=== PATIENT | female | born 1950 | race Caucasian/White ===

== ENCOUNTER 2020-07-09 14:22 | Outpatient (CLI) | payer MEDICARE ==
--- NOTE | 2020-07-09 16:08 | DEXA Report ---
PROCEDURE: Dexa Spine and/or Hip INDICATIONS: POST MENOPAUSAL TECHNIQUE: Dual energy x-ray absorptiometry (DXA) was performed on a [employer] System. Regions measur ed are the AP Spine, femoral neck, and if needed forearm. COMPARISON: None. FINDINGS: Lumbar Spine: Bone Mineral Density 1.077 g/cm/cm,T score -0.9, normal Left Hip: Bone Mineral Density 0.712 g/cm/cm,T score -2.3, osteopenia Left Femoral Neck: Bone Mineral Density 0.689 g/cm/cm, T score -2.5, osteoporosis (T score greater or equal to -1.0: NORMAL) (T score from -1.1 to -2.4: OSTEOPENIA) (T score less than or equal to -2.5 to: OSTEOPOROSIS) Impression: Osteoporosis. Patients with diagnosis of osteoporosis or osteopenia should have regular bone mineral density assess ment. For those eligible for Medicare, routine testing is allowed once every 2 years. Testing frequ ency can be increased for patients who have rapidly progressing disease or for those who are receivin g medical therapy to restore bone mass. Reviewed by: Hanny Castellon MD, PhD on 07/09/2020 4:07 PM PST Approved by: Hanny Castellon MD, PhD on 07/09/2020 4:07 PM PST Station ID: [id number]
== END 2020-07-09 14:23 | disposition home or self-care (01) ==
LOC: DI 14:22
PROVIDERS: ATTEND Nurse Practitioner
DX: M81.0 Age-related osteoporosis without current pathological fracture (principal); Z78.0 Asymptomatic menopausal state

== ENCOUNTER 2020-08-25 10:09 | Outpatient (CLI) | payer MEDICARE, OTHER ==
--- NOTE | 2020-08-26 12:25 | Mammography Report ---
BILATERAL DIGITAL SCREENING MAMMOGRAM 3D/2D WITH AUGMENTATION: 08/25/2020 CLINICAL: Routine screening. Comparison is made to exams dated: 09/11/2014 mammogram and 10/05/2011 mammogram - [facility]. The tissue of both breasts is heterogeneously dense. This may lower the sensitivity of ma mmography. Bilateral breast implants are stable. No significant masses, calcifications, or other findings are seen in either breast. There has been no significant interval change. IMPRESSION: NEGATIVE There is no mammographic evidence of malignancy. A 1 year screening mammogram is recommended. This exam was interpreted at Station ID: [id number]. NOTE: For mammograms, a report in lay terms will be sent to the patient. Approximately 15% of breast malignancies will not be visualized mammographically. In the management of a palpable breast mass, a negative mammogram must not discourage biopsy of a clinically suspicious lesion. Electronically Signed By: Yung Jiménez M.D. ar/penrad:08/25/2020 12:04:33 ACR BI-RADS Category 1: Negative 3341F PARENCHYMAL PATTERN: (D) - The breast(s) demonstrate(s) heterogeneously dense fibroglandular parenchy ma. BI-RADS CATEGORY: (1) - 1 RECOMMENDATION: (ANNUAL) - Recommend routine annual screening mammography. [id number] 1 year screening LATERALITY: (B)
== END 2020-08-25 10:10 | disposition home or self-care (01) ==
LOC: DI.N 10:09
PROVIDERS: ATTEND Nurse Practitioner
DX: Z12.31 Encounter for screening mammogram for malignant neoplasm of breast (principal)

== ENCOUNTER 2021-02-10 08:00 | Outpatient (CLI) | payer MEDICARE, OTHER | END 2021-02-10 23:59 | disposition home or self-care (01) | LOC: LAB.N 08:00 | PROVIDERS: ATTEND Physician Assistant Medical | DX: R05 Cough (principal); Z20.822 Contact with and (suspected) exposure to COVID-19 ==

== ENCOUNTER 2021-08-05 13:35 | Outpatient (CLI) | payer MEDICARE ==
[2021-08-05 19:06] LABS: % IRON SATURATION 47 % (20-50); IRON 176 ug/dL (28-170); TOTAL IRON BINDING CAPACITY 372 ug/dL (250-450); TRANSFERRIN 266 mg/dL (192-382)
== END 2021-08-05 13:36 | disposition home or self-care (01) ==
LOC: LAB.N 13:35
PROVIDERS: ATTEND Registered Nurse
DX: R79.0 Abnormal level of blood mineral (principal)
CPT/HCPCS: 36415; 82728; 83540; 84466

== ENCOUNTER 2022-10-02 21:44 | Emergency (ER) | payer MEDICARE ==
[2022-10-02] MEDS ORDERED: SODIUM CHLORIDE 0.9% 1,000 ML IV STA (22:19)
[2022-10-02 22:47] LABS: BASOPHILS % (AUTO) 0.9 %; EOSINOPHILS # (AUTO) 0.2 10^3/uL (0.0-0.7); EOSINOPHILS % (AUTO) 4.1 %; HCT - HEMATOCRIT 41.2 % (37.0-47.0); LYMPHOCYTES # (AUTO) 1.6 10^3/uL (1.5-3.5); LYMPHOCYTES % (AUTO) 33.9 %; MEAN CORPUSCULAR HEMOGLOBIN 31.3 pg (27.0-31.0); MEAN PLATELET VOLUME 9.6 fL (7.9-10.8); MONOCYTES # (AUTO) 0.4 10^3/uL (0.0-1.0); MONOCYTES % (AUTO) 7.7 %; NEUTROPHILS # (AUTO) 2.5 10^3/uL (1.5-6.6); NEUTROPHILS % (AUTO) 53.2 %; PLT - PLATELET COUNT 256 10^3/uL (130-450); RED BLOOD COUNT 4.48 10^6/uL (4.20-5.40); RED CELL DISTRIBUTION WIDTH 12.5 % (12.0-15.0); WHITE BLOOD COUNT 4.7 x10^3/uL (4.8-10.8)
[2022-10-02 23:07] LABS: ALBUMIN 3.8 g/dL (3.2-5.5); ALBUMIN/GLOBULIN RATIO 1.6 (1.0-2.2); BILIRUBIN,TOTAL 0.7 mg/dL (0.2-1.0); CALCIUM 8.9 mg/dL (8.5-10.3); CREATININE 0.5 mg/dL (0.4-1.0); MAGNESIUM 2.1 mg/dL (1.7-2.8); POTASSIUM 4.1 mmol/L (3.5-5.0); TOTAL PROTEIN 6.2 g/dL (6.7-8.2)
[2022-10-02] MEDS ORDERED: METOPROLOL TARTRATE 25 MG TABLET PO STA (23:42)
[2022-10-02] MEDS ORDERED: APIXABAN 5 MG TABLET PO STA (23:43)
--- NOTE | 2022-10-03 00:17 | ED Physician Documentation ---
History of Present Illness - Stated complaint Stated Complaint: HIGH HEART RATE - Chief complaint Chief Complaint: Cardiac - History obtained from History obtained from: Patient - Additonal information Additional information: Patient is a 71-year-old female with a history of Takotsubo's cardiomyopathy in 2019 after the passing of her mother presenting for evaluation of an elevated heart rate. Patient states that around 430 her Apple Watch alerted her that her heart rate was fast. She says that she was just sitting down and otherwise feeling well but it continued to give her alarms that her heart rate was fast through the evening so she decided to come to the emergency department for evaluation. She has previously been seen at [facility] and by [facility] cardiology for palpitations. She reports having a heart monitor last year and a follow-up appointment in the fall. On review of her outpatient records through care everywhere she was diagnosed with an atrial tachycardia With brief runs of atrial tachycardia and very mild symptoms so no medications were recommended at that time. She was advised to avoid triggers and manage her stress better. She sees Dr. Barajas at [facility] cardiology.She does not currently take any medications. She denies recent travel or immobilization. She denies alcohol use or [id number] cold medicine use. Review of Systems Constitutional: denies: Fever Cardiac: denies: Chest pain / pressure Respiratory: denies: Dyspnea GI: denies: Abdominal Pain Musculoskeletal: denies: Extremity swelling Neurologic: denies: Headache PD PAST MEDICAL HISTORY - Past Medical History Past Medical History: Yes Cardiovascular: Other Other Past Medical History: broken heart syndrome - Past Surgical History Past Surgical History: Yes General: Colonoscopy, Other - Present Medications Home Medications: Ambulatory Orders Medication Instructions Recorded Confirmed Apixaban [Eliquis] 5 mg PO BID #60 tablet 10/03/22 Metoprolol Tartrate [Lopressor] 25 mg PO BID #60 tablet 10/03/22 - Allergies Allergies/Adverse Reactions: Allergies Allergy/AdvReac Type Severity Reaction Status Date / Time aspirin [From Percodan] AdvReac Unknown Verified 10/02/22 22:04 oxycodone [From Percodan] AdvReac Unknown Verified 10/02/22 22:04 - Social History Does the pt smoke?: No Smoking Status: Never smoker Does the pt drink ETOH?: No Does the pt have substance abuse?: No - Immunizations Immunizations are current?: Yes PD ED PE NORMAL - General General: Alert and oriented X 3, No acute distress, Well developed/nourished - HEENT HEENT: Atraumatic - Neck Neck: Supple, no meningeal sign - Cardiac Cardiac: No murmur, Strong equal pulses, Other (Irregular rhythm, tachycardic) - Respiratory Respiratory: No respiratory distress, Clear bilaterally - Abdomen Abdomen: Soft, Non tender, Non distended - Derm Derm: Warm and dry - Extremities Extremities: No edema, No calf tenderness / cord - Neuro Neuro: Normal speech Results - Vitals Vitals: Vital Signs - 24 hr 10/02/22 10/02/22 10/03/22 22:01 22:29 00:16 Temperature 36.7 C Heart Rate 126 H 102 H 84 Respiratory 13 17 18 Rate Blood Pressure 121/96 H 127/88 H 121/90 H O2 Saturation 96 100 100 10/03/22 00:49 Temperature Heart Rate 85 Respiratory 20 Rate Blood Pressure 122/88 H O2 Saturation 100 Oxygen O2 Source Room air - EKG (time done) 2221 EKG releavant findings:: EKG personally interpreted by author of this note. Relevant findings are: Rate 128, atrial tachycardia, no STEMI Rate: Rate (enter#) (128) Rhythm: Atrial fibrillation Ischemia: No: ST elevation c/w ischemia 2315 EKG releavant findings:: EKG personally interpreted by author of this note. Relevant findings are: Rate 98, atrial fibrillation, no STEMI, Rate: Rate (enter#) (98) Rhythm: Atrial fibrillation Ischemia: No: ST elevation c/w ischemia - Labs Labs: Laboratory Tests 10/02/22 10/02/22 10/02/22 22:38 22:38 22:38 WBC 4.7 L RBC 4.48 Hgb 14.0 Hct 41.2 MCV 92.0 MCH 31.3 H MCHC 34.0 RDW 12.5 Plt Count 256 MPV 9.6 Neut # (Auto) 2.5 Lymph # (Auto) 1.6 [place] # (Auto) 0.4 Eos # (Auto) 0.2 Baso # (Auto) 0.0 Absolute Nucleated RBC 0.00 Nucleated RBC % 0.0 D-Dimer < 200.0 L Sodium 136 Potassium 4.1 Chloride 102 Carbon Dioxide 23 Anion Gap 11.0 BUN 16 Creatinine 0.5 Estimated GFR (MDRD) 122 Glucose 107 H Calcium 8.9 Magnesium 2.1 Total Bilirubin 0.7 AST 26 ALT 20 Alkaline Phosphatase 58 Total Protein 6.2 L Albumin 3.8 Globulin 2.4 Albumin/Globulin Ratio 1.6 TSH 10/02/22 22:38 WBC RBC Hgb Hct MCV MCH MCHC RDW Plt Count MPV Neut # (Auto) Lymph # (Auto) [place] # (Auto) Eos # (Auto) Baso # (Auto) Absolute Nucleated RBC Nucleated RBC % D-Dimer Sodium Potassium Chloride Carbon Dioxide Anion Gap BUN Creatinine Estimated GFR (MDRD) Glucose Calcium Magnesium Total Bilirubin AST ALT Alkaline Phosphatase Total Protein Albumin Globulin Albumin/Globulin Ratio TSH 1.50 PD Medical Decision Making - ED course Complexity details: reviewed results, re-evaluated patient, d/w patient ED course: Patient is a 71-year-old female presenting for evaluation of elevated heart rate noted by her Apple Watch. She is tachycardic. EKGs demonstrate atrial fibrillation. She does have a history of atrial tachycardia but is not currently on any medications. She has not had any symptoms with her tachycardia today. CBC, chemistry, D-dimer, TSH were all obtained and reviewed and without significant findings. No chest pain to suggest ACS.Patient's heart rate did improve with IV fluids.Unclear how long she may have been in atrial fibrillation as she does not appear to have symptoms from it and was only alerted when her heart rate was elevated.She does have a breaker boss through [facility] cardiology. Patient was started on metoprolol. She has a [id number] score of 2. I discussed risks and benefits of anticoagulation and she is agreeable to Eliquis. She understands the need for close follow-up with her breaker boss and is advised on concerning symptoms to return for.Patient's rate is controlled at time of discharge. Departure - Departure Disposition: 01 Home, Self Care Clinical Impression: Atrial fibrillation Condition: Stable Instructions: ED Afib Follow-Up: Soha Barajas MD [Physician No Access] - Prescriptions: Apixaban [Eliquis] 5 mg PO BID #60 tablet Metoprolol Tartrate [Lopressor] 25 mg PO BID #60 tablet Comments: Your symptoms today are from an irregular heart rhythm called atrial fibrillation. We are starting you on 2 medications. 1 is a medicine called metoprolol which will help with your heart rate. You may also affect your blood pressure. I would recommend checking your heart rate and blood pressure before taking each dose. Do not take the metoprolol if your heart rate is less than 60 or the top blood pressure number is less than 100. I am also starting you on a blood thinner called Eliquis.This will help prevent the formation of any clots which can happen when you are in an irregular rhythm. Please call your breaker boss office on Tuesday for close follow-up. Please return to the emergency department if you develop any symptoms such as chest pain or shortness of breath or have any concerns. [facility] [place]. Discharge Date/Time: 10/03/22 00:49
[2022-10-03 00:50] VITALS: BP 122/88
== END 2022-10-03 00:49 | disposition home or self-care (01) ==
LOC: ED 21:44
DX: I48.91 Unspecified atrial fibrillation (principal)
CPT/HCPCS: 36415; 80053; 83735; 84443; 85025; 85379; 93005; 96360; 96361; 99284; A9270